=== PATIENT | female | born 1955 | race Caucasian/White ===

== ENCOUNTER → 2017-06-08 | Outpatient (CLI) | payer BC ==
[2017-06-08 13:47] LABS: BASO % 1.1 %; BASO ABS # 0.06 K/uL (0-0.2); COMPLETE YES; EOS % 4.6 %; HEMATOCRIT 43.3 % (37-47); LYMPH ABS # 2.19 K/uL (1.2-3.4); MEAN CELL VOLUME 91.5 fL (80-100); MEAN CORPUSCULAR HEMOGLOBIN 30.9 pg (25-34); MEAN CORPUSCULAR HGB CONC 33.7 g/dl (32-36); MEAN PLATELET VOLUME 10.3 fL (7.4-10.4); MONO % 9.3 %; PLATELET COUNT 237 K/uL (130-400); RED BLOOD COUNT 4.73 M/uL (4.2-5.4); WHITE BLOOD COUNT 5.48 K/uL (4.8-10.8)
[2017-06-08 15:17] LABS: ALT/SGPT 26 U/L (12-78); AST/SGOT 15 U/L (15-37); BLOOD UREA NITROGEN 17 mg/dl (7-18); BUN/CREATININE RATIO 18.7 (10-20); CALCIUM 9.3 mg/dl (8.5-10.1); CARBON DIOXIDE 30 mmol/L (21-32); CHLORIDE 109 mmol/L (98-107); CREATININE 0.91 mg/dl (0.60-1.20); GLUCOSE 92 mg/dl (70-99); POTASSIUM 4.2 mmol/L (3.5-5.1); SODIUM 143 mmol/L (136-145)
[2017-06-08 15:25] LABS: ALB/GLOB RATIO 1.1 (0.9-2); ALKALINE PHOSPHATASE 82 U/L (45-117); CHOLESTEROL 244 mg/dl (0-200); CHOLESTEROL/HDL RATIO 4.6; HDL CHOLESTEROL 53 mg/dl; LDL CHOLESTEROL CALCULATED 159 mg/dl; TRIGLYCERIDES 161 mg/dl (0-150); VERY LOW DENSITY LIPOPROT CALC 32 mg/dl
== END | disposition home or self-care (01) ==
LOC: C.LABMFLN 07:21
PROVIDERS: ATTEND Family Medicine
DX: E03.9 Hypothyroidism, unspecified (principal); E78.5 Hyperlipidemia, unspecified; C43.9 Malignant melanoma of skin, unspecified

== ENCOUNTER → 2017-06-25 | Outpatient (CLI) | payer BC | END | disposition home or self-care (01) | LOC: C.RDSM 09:28 | PROVIDERS: ATTEND Orthopaedic Surgery Sports Medicine | DX: M25.572 Pain in left ankle and joints of left foot (principal) ==

== ENCOUNTER → 2017-09-09 | Outpatient (CLI) | payer BC ==
--- NOTE | 2017-09-09 19:02 | DIAGNOSTIC IMAGING REPORT ---
L LOWER EXT JOINT WITHOUT CLINICAL HISTORY: 61 years-old Female presenting with LEFT HEEL PAIN. TECHNIQUE: Multisequence, multiplanar MR imaging of the left ankle was performed without the use of intravenous contrast. IV contrast: None. COMPARISON: Plain radiograph of the left ankle from 06/25/2017. FINDINGS: Localizer images: Unremarkable. Bony edema noted at the posterior calcaneus associated with the insertion site of the Achilles tendon. Fluid signal intensity consistent with cystic change also noted. The Achilles tendon itself demonstrates only minimal increased intrasubstance signal consistent with tendinosis. Most pronounced focal signal is noted along the medial aspect of the Achilles tendon approximate 2 cm proximal to the insertion site, partial tear in this region not excluded. No full-thickness tear evident. Anterior tendons including the tibialis anterior, extensor hallucis longus, and extensor digitorum longus intact. Medial tendons including the tibialis posterior, flexor digitorum longus, and flexor hallucis longus intact. Proteus longus and brevis tendons intact. Anterior and posterior tibiofibular ligaments intact. Anterior and posterior talofibular ligaments intact. Minimal increased signal within the deltoid ligament could suggest degenerative change. Normal muscle bulk and muscle signal intensity. Mild subcutaneous edema noted along the Achilles tendon distally. No significant ankle joint effusion. IMPRESSION: 1. Findings consistent with Achilles tendinopathy with bone marrow edema at the Achilles tendon insertion site with cystic change. Partial tear along the medial aspect of the Achilles tendon 2 cm proximal to the insertion site is difficult to exclude. No full-thickness tear. 2. Possible degenerative change of the deltoid ligament. Electronically signed by: Alex Fuentes M.D. 09/09/2017 7:01 PM Dictated Date/Time: 09/09/2017 6:53 PM
== END | disposition home or self-care (01) ==
LOC: C.MRI 18:13
PROVIDERS: ATTEND Family Medicine
DX: M79.672 Pain in left foot (principal); R93.7 Abnormal findings on diagnostic imaging of other parts of musculoskeletal system

== ENCOUNTER → 2017-09-27 | Outpatient (CLI) | payer BC ==
[2017-09-27 13:53] LABS: CHOLESTEROL/HDL RATIO 3.8; THYROID STIMULATING HORMONE 1.31 uIu/ml (0.300-4.500)
== END | disposition home or self-care (01) ==
LOC: C.LABMFLN 07:46
PROVIDERS: ATTEND Family Medicine
DX: E03.9 Hypothyroidism, unspecified (principal); E78.5 Hyperlipidemia, unspecified

== ENCOUNTER → 2018-03-16 | Outpatient (CLI) | payer BC | END | disposition home or self-care (01) | LOC: C.RDSM 14:25 | PROVIDERS: ATTEND Orthopaedic Surgery Sports Medicine | DX: M25.561 Pain in right knee (principal) ==